=== PATIENT | male | born 1940 | race Caucasian/White ===

== ENCOUNTER 2024-11-26 14:36 | Emergency (ER) | payer MEDICARE, BC ==
[~2024-11-26] VITALS: Ht 185.4 cm; Wt 113.4 kg
[2024-11-26] MEDS ORDERED: TRILEPTAL (14:50)
[2024-11-26] MEDS ORDERED: FLOMAX (14:50)
[2024-11-26] MEDS ORDERED: AMIODARONE (14:50)
[2024-11-26] MEDS ORDERED: LIPITOR (14:50)
[2024-11-26 15:15] LABS: BASOPHILS # (AUTO) 0.1 K/UL (0.0-0.2); EOSINOPHILS # (AUTO) 0.1 K/uL (0.0-0.7); EOSINOPHILS % (AUTO) 1.2 % (0.0-7.0); LYMPHOCYTES # (AUTO) 0.8 K/uL (0.8-4.8); LYMPHOCYTES % (AUTO) 14.3 % (20.5-51.5); MEAN CORPUSCULAR HEMOGLOBIN 30.6 uug (23.8-33.4); MEAN CORPUSCULAR HGB CONC 34 g/dL (32.5-36.3); MEAN CORPUSCULAR VOLUME 89.4 fL (73.0-96.2); MONOCYTES # (AUTO) 0.7 K/uL (0.1-1.30); MONOCYTES % (AUTO) 11.7 % (0.0-11.0); NEUTROPHILS % (AUTO) 71.8 % (38.5-71.5); PLATELET COUNT (AUTO) 203 K/uL (152-348); RED BLOOD CELL COUNT(AUTO) 4.25 MIL/uL (4.06-5.63); RED CELL DISTRIBUTION WIDTH 14.9 % (12.1-16.2); WHITE BLOOD COUNT (AUTO) 5.6 K/uL (3.6-10.2)
[2024-11-26 15:29] LABS: ALANINE AMINOTRANSFERASE 31 U/L (16-63); ALBUMIN 3.8 g/dL (3.4-5.0); ALKALINE PHOSPHATASE 150 U/L (50-136); ASPARTATE AMINOTRANSFERASE 32 U/L (15-37); BILIRUBIN,DIRECT 0.2 mg/dL (0.0-0.2); BILIRUBIN,TOTAL 0.6 mg/dL (0.2-1.0); CALCIUM 8.5 mg/dL (8.5-10.1); CARBON DIOXIDE 28 mmol/L (21-32); CHLORIDE 96 mmol/L (98-107); CREATININE 1.1 mg/dL (0.6-1.3); GLUCOSE 105 mg/dL (74-106); POTASSIUM 4.3 mmol/L (3.5-5.1); SODIUM SERUM 133 mmol/L (136-145); TOTAL PROTEIN, SERUM 7.1 g/dL (6.4-8.2); UREA NITROGEN, BLOOD 13 mg/dL (7-18)
[2024-11-26 15:34] LABS: AMMONIA < 10 umol/L (11-32)
[2024-11-26 15:35] LABS: DIFFERENTIAL COMMENT 1
[2024-11-26 15:38] LABS: ACETAMINOPHEN < 2.0 ug/mL (10-30); THYROID STIMULATING HORMONE 4.714 mIU/mL (0.358-3.740)
[2024-11-26] MEDS: IV NORMAL SALINE 1000 ML BAG IV ONE (15:41)
[2024-11-26] MEDS ORDERED: ACETAMINOPHEN 500 MG TABLET ONE (15:42)
[2024-11-26] MEDS: ACETAMINOPHEN 500 MG TABLET PO ONE (16:09)
[2024-11-26 16:32] LABS: ETHANOL < 3 MG/DL (0-10)
[2024-11-26 16:37] LABS: *BILIRUBIN,URIN NEGATIVE (NEGATIVE); *BLOOD, URINE NEGATIVE (NEGATIVE); *CLARITY,URINE CLEAR (CLEAR); *COLOR,URINE YELLOW (YELLOW); *KETONES,URINE NEGATIVE (NEGATIVE); *PROTEIN,URINE NEGATIVE (NEGATIVE); *UROBILINOGEN,URINE 0.2 E.U./dl (NORMAL); LEUKOCYTE ESTERASE ,URINE NEGATIVE (NEGATIVE); NITRITE, URINE NEGATIVE (NEGATIVE); PH,URINE 7.5 (5.0-8.0); UGLUCOSE NEGATIVE (NEGATIVE)
[2024-11-26 17:21] VITALS: BP 109/99; TEMP 98; O2SAT 97
== END 2024-11-26 17:23 | disposition home or self-care (01) ==
LOC: ER 14:36
DX: F03.90 Unspecified dementia, unspecified severity, without behavioral disturbance, psychotic disturbance, mood disturbance, and anxiety (principal); R51.9 Headache, unspecified; R40.4 Transient alteration of awareness; R94.6 Abnormal results of thyroid function studies; R06.00 Dyspnea, unspecified; E78.5 Hyperlipidemia, unspecified; I11.9 Hypertensive heart disease without heart failure; I48.91 Unspecified atrial fibrillation; Z86.73 Personal history of transient ischemic attack (TIA), and cerebral infarction without residual deficits; Z20.822 Contact with and (suspected) exposure to COVID-19; Z95.0 Presence of cardiac pacemaker
CPT/HCPCS: 87804 ×2; 80076; 80048; 81003; 82140; 82962; 84443; 85025; 85730; 87426; 87040 ×2; 84484; 36415; 71045; 70450; 93005; 99285; 96360; 96361; 83605; 80299; 80320; 80179; J7040; A4606; A4663; A9150; G0480